=== PATIENT | female | born 1985 | race Caucasian/White ===

== ENCOUNTER → 2024-12-17 09:00 | Outpatient (REF) | payer BC, SELFPAY | LOC: PAVMRI 09:00 | PROVIDERS: ATTENDING PHYSICIAN Surgery | DX: M53.3 Sacrococcygeal disorders, not elsewhere classified (principal) | CPT/HCPCS: 72195 ==

== ENCOUNTER 2025-01-19 06:18 | Day surgery (SDC) | payer BC, SELFPAY ==
[2025-01-19] VITALS (7 sets, daily range): BP systolic 104–116; BP diastolic 55–75; BMI 25.3
[2025-01-19] MEDS: CELEBREX 200 MG PO (08:12)
[2025-01-19] MEDS: NORMOSOL-R/PLASMALYTE-A 1000 IV (08:12)
[2025-01-19] MEDS: TYLENOL 1000 MG PO (08:12)
[2025-01-19 08:16] LABS: HCG, Urine Qualitative Screen Negative
--- NOTE | 2025-01-19 09:40 | W.IMMPOSTOP ---
Addendum entered and electronically signed by Marc Gooden MD 01/19/25 11:55:
the patient and spouse were updated in SDS earlier
Original Note:
Surgical Immed Post Op Note
-
Primary Surgeon: Marc Gooden MD
Assisting Surgeon: None
Pre-op Diagnosis: Left gluteal cyst
Post-op Diagnosis: Left gluteal cyst
Procedure Performed: Excision of left gluteal cyst
Anesthesia Type: Sedation with local
Specimen / Cultures: Left gluteal cyst
Estimated Blood Loss: 5 mL
Complications: None
Operative Findings: Left upper gluteal cyst, about 5 x 6 cm, easily excised completely; closed in layers with Vicryl, subcuticular running Biosyn and covered in LiquiBand
--- NOTE | 2025-01-19 09:42 | OR.RPT ---
Operative Report
Operative Report
DATE OF OPERATION: 01/19/2025
SURGEON: Marc Gooden MD
PREOPERATIVE DIAGNOSIS: Left gluteal cyst
POSTOPERATIVE DIAGNOSIS: Left gluteal cyst
OPERATION: Excision of left gluteal cyst
ASSISTANTS:
1. None
ANESTHESIA: Sedation with local
ESTIMATED BLOOD LOSS: 5 mL
FINDINGS:
1. 5 x 6 cm left upper gluteal cyst, 3-4 cm off midline, excised in its entirety
2. Skin closed primarily
SPECIMENS:
1. Left gluteal cyst
DRAINS: None
COMPLICATIONS: None
INDICATIONS: The patient is a 39-year-old female who presented to my office with a left upper gluteal lesion that had been starting to bother her. It had been there for many years, but has started to bother her more recently. An MRI was done
confirming that this was a benign appearing cyst without involvement of nearby structures. Therefore, I recommended excision. The operation was discussed with the patient in detail, including the risks, benefits and alternatives. Risks described
included, but not limited to bleeding, infection, damage nearby structures, rupture of capsule, positive margin, recurrence and anesthetic risks. The patient understood and agreed to proceed. The consent was signed and placed in the chart.
PROCEDURE IN DETAIL: The patient was taken to the operating room. Sequential compression devices were placed bilaterally. The patient was placed on the operating table in prone position. Sedation was commenced without complication. Two seat belts
were secured around the legs and upper back. The buttocks were taped apart. The upper left gluteal/sacral region was prepped and draped in the usual fashion. A time-out was performed verifying the correct patient, procedure, operative site,
positioning, and special equipment.
Local anesthesia used was a mixture of 30 mL of 0.25% Marcaine with epinephrine, 30mL of 1% lidocaine plain and 0.6 mg of dexamethasone. 15 mL of local was injected around the left gluteal cyst. I made an elliptical incision along Jean's lines
to improve cosmesis of the closure. I dissected down to the cyst with electrocautery, taking care to avoid rupture of the capsule. Using a combination of blunt dissection and electrocautery, I dissected the cyst from the adjacent subcutaneous
tissues. The cyst had distinct margins and the dissection was straightforward. At the end of the dissection, a very small amount of contents did seep from a punctate opening towards the top of the cyst, but the material did not enter the wound and
was easily controlled with a sponge. The cyst was passed off for pathology. The wound was copiously irrigated and hemostasis was assured. An additional 15 mL of local were injected around the wound. I closed the wound in layers. I placed a
couple of 3-0 Vicryl stitches to close the space. I placed interrupted 3-0 Vicryl stitches in a deep dermal fashion to reapproximate the skin. I closed the skin using 4-0 Monocryl in a running subcuticular fashion. The incision was dressed
with Dermabond.
At this point, the procedure was complete. All needle, sponge and instrument counts were correct. The patient tolerated the procedure well and was transferred to the recovery room in stable condition.
DICTATED BY: Marc Gooden MD
== END 2025-01-19 10:50 | disposition home or self-care (01) ==
LOC: SDS 06:18
PROVIDERS: ATTENDING PHYSICIAN Surgery
DX: L72.8 Other follicular cysts of the skin and subcutaneous tissue (principal)
CPT/HCPCS: 27043; 81025; 88304